=== PATIENT | female | born 1945 | race Hispanic/Latino ===

== ENCOUNTER → 2017-07-09 | Outpatient (CLI) | payer MEDICARE ==
[~2017-07-09] MED LIST: AMLO1TAB99 PO; CALC600T12 PO; DULO60CA63 PO; FE F1CAP9 PO; FOLI1TAB15 PO; HYDR-2132 PO; HYDR200T4 PO; LABE200T PO; LANS30CA55 PO; METH25VI17 IJ; MULT-1258 PO; OMEG-53 PO; SULF500T8 PO; TYLENOL PM PO; VALS1TAB77 PO; WARF10TA45 PO
== END | disposition home or self-care (01) ==
LOC: SHCH 10:27
PROVIDERS: ATTEND Internal Medicine Cardiovascular Disease
DX: I35.0 Nonrheumatic aortic (valve) stenosis (principal)
CPT/HCPCS: 93306

== ENCOUNTER 2017-09-21 11:21 | Emergency (ER) | payer MEDICARE ==
[~2017-09-21 11:21] MED LIST changes: -LABE200T PO; +LABE200T5 PO
== END 2017-09-21 12:19 | disposition home or self-care (01) ==
LOC: EDH 11:21
DX: H66.012 Acute suppurative otitis media with spontaneous rupture of ear drum, left ear (principal); I10 Essential (primary) hypertension; Z85.3 Personal history of malignant neoplasm of breast; Z98.890 Other specified postprocedural states; Z87.891 Personal history of nicotine dependence

== ENCOUNTER → 2019-04-12 | Outpatient (CLI) | payer MEDICARE ==
[~2019-04-12] VITALS: Ht 154.9 cm; Wt 110.7 kg
[~2019-04-12] MED LIST changes: -DULO60CA63 PO; +DULO60CA64 PO; +REGADENOSON 0.4 MG/5 ML PF SYG IVP SCH
== END | disposition home or self-care (01) ==
LOC: SHCH 08:46
PROVIDERS: ATTEND Internal Medicine Cardiovascular Disease
DX: I35.0 Nonrheumatic aortic (valve) stenosis (principal)
CPT/HCPCS: 78452; 93017; 96374; A9500 ×2; J2785

== ENCOUNTER 2019-05-08 10:59 | Observation (INO) | payer MEDICARE ==
[~2019-05-08] VITALS: Ht 160 cm; Wt 112.0 kg
[~2019-05-08 10:59] MED LIST changes: -REGADENOSON 0.4 MG/5 ML PF SYG IVP SCH
[2019-05-08 14:00] LABS: BASOPHILS % (AUTO) 0.8 % (0.0-5.0); EOSINOPHILS % (AUTO) 3.2 % (0.0-8.0); HEMATOCRIT 32.9 % (36-48); LYMPHOCYTES % (AUTO) 9.4 % (21.0-51.0); MEAN CORPUSCULAR HEMOGLOBIN 28.3 pg (27.0-33.0); MEAN CORPUSCULAR VOLUME 91.4 fL (79-99); MONOCYTES % (AUTO) 9.4 % (3.0-13.0); NEUTROPHILS % (AUTO) 76.9 % (40.0-77.0); PLATELET COUNT (AUTO) 317 K/uL (130-400); WHITE BLOOD COUNT (AUTO) 8.9 K/uL (4.8-10.8)
[2019-05-08 14:18] LABS: PARTIAL THROMBOPLASTIN TIME 59.4 SEC (26.3-35.5)
[2019-05-08 14:44] LABS: CREATININE 0.7 mg/dL (0.5-1.5); POTASSIUM 3.8 mmol/L (3.5-5.1)
[2019-05-08 14:51] LABS: ALBUMIN 3.5 g/dL (3.5-5.0); BILIRUBIN,TOTAL 0.6 mg/dL (0.2-1.0); INR 6.08 (0.85-1.15); PROTHROMBIN TIME 59.6 SEC (9.6-11.6); TOTAL PROTEIN, SERUM 7.9 g/dL (6.0-8.3)
[2019-05-08] MEDS ORDERED: PHYTONADIONE 10 MG/1 ML AMP ONE (15:12)
[2019-05-08] MEDS ORDERED: ONDANSETRON HCL 4 MG/2 ML VIAL ONE (15:28)
[2019-05-08] MEDS ORDERED: MORPHINE SULFATE 2 MG/ML 1ML SYG ONE (15:28)
--- NOTE | 2019-05-08 18:55 | NUR ---
ADMISSION FROM ER. PT AAO X 3 , VERY HUNGRY ,SETUP A DINNER SANDWICH. CALL LIGHT IN REACH..
[2019-05-08 19:30] VITALS: BP 138/73
[2019-05-08] MEDS ORDERED: MORPHINE SULFATE 2 MG/ML 1ML SYG IVP PRN (19:30)
[2019-05-08] MEDS ORDERED: LOSA1TAB37 PO (20:54)
[2019-05-08] MEDS ORDERED: HYDR25TA PO (20:54)
[2019-05-08] MEDS ORDERED: OXYB5TAB15 PO (20:54)
[2019-05-08] MEDS ORDERED: PREG50CA63 PO (20:54)
[2019-05-08] MEDS ORDERED: WARF10TA23 PO (20:54)
[2019-05-08] MEDS ORDERED: PANT20TA12 PO (20:54)
[2019-05-08] MEDS ORDERED: MONT10TA24 PO (20:54)
[2019-05-08] MEDS ORDERED: CHOL200012 PO (20:57)
[2019-05-08] MEDS ORDERED: LATA7.5D OP (20:57)
[2019-05-08] MEDS ORDERED: OMEG-148 PO (20:57)
[2019-05-08 23:23] VITALS: BP 131/65
[2019-05-09] MEDS ORDERED: MORPHINE SULFATE 2 MG/ML 1ML SYG IVP ONE (01:45)
[2019-05-09] MEDS ORDERED: MORPHINE SULFATE 2 MG/ML 1ML SYG IVP PRN (01:45)
[2019-05-09] MEDS ORDERED: MORPHINE SULFATE 2 MG/ML 1ML SYG ONE (02:00)
[2019-05-09 03:25] VITALS: BP 152/69
[2019-05-09 05:06] LABS: HEMATOCRIT 29.5 % (36-48); MEAN CORPUSCULAR HEMOGLOBIN 28.2 pg (27.0-33.0); MEAN CORPUSCULAR HGB CONC 30.8 g/dL (32.0-36.0); MEAN CORPUSCULAR VOLUME 91.3 fL (79-99); PLATELET COUNT (AUTO) 303 K/uL (130-400); RED BLOOD CELL COUNT(AUTO) 3.23 MIL/uL (4.00-5.50); RED CELL DISTRIBUTION WIDTH 15.2 % (11.0-15.5); WHITE BLOOD COUNT (AUTO) 7.3 K/uL (4.8-10.8)
[2019-05-09 05:31] LABS: BILIRUBIN,TOTAL 0.5 mg/dL (0.2-1.0); CREATININE 0.7 mg/dL (0.5-1.5); POTASSIUM 3.7 mmol/L (3.5-5.1); TOTAL PROTEIN, SERUM 6.9 g/dL (6.0-8.3)
[2019-05-09 05:38] LABS: INR 3.61 (0.85-1.15); PROTHROMBIN TIME 36.1 SEC (9.6-11.6)
[2019-05-09 07:37] VITALS: BP 141/64
[2019-05-09] MEDS ORDERED: IPRATROPIUM/ALBUTEROL SULFATE 3 ML SOLUTION IH ONE (08:52)
[2019-05-09] MEDS ORDERED: CHOLECALCIFEROL 50 MCG PO SCH (09:00)
[2019-05-09] MEDS ORDERED: OXYBUTYNIN CHLORIDE 5 MG TABLET PO SCH (09:00)
[2019-05-09] MEDS ORDERED: SULFASALAZINE 500 MG TAB.DR PO SCH (09:00)
[2019-05-09] MEDS ORDERED: FISH OIL 1000 MG/CAP PO SCH (09:00)
[2019-05-09] MEDS ORDERED: LOSARTAN/HYDROCHLOROTHIAZIDE 50-12.5MG TABLET PO SCH (09:00)
[2019-05-09] MEDS ORDERED: HYDROCHLOROTHIAZIDE 25 MG TABLET PO SCH (09:00)
[2019-05-09] MEDS ORDERED: MULTIVITAMIN WITH MINERALS TABLET PO SCH (09:08)
[2019-05-09] MEDS ORDERED: PANTOPRAZOLE SODIUM 20 MG PO SCH (09:15)
[2019-05-09] MEDS ORDERED: PREGABALIN 25 MG CAP PO SCH (09:16)
[2019-05-09 10:59] VITALS: BP 181/92
[2019-05-09] MEDS ORDERED: IPRATROPIUM/ALBUTEROL SULFATE 3 ML SOLUTION IH SCH (12:00)
--- NOTE | 2019-05-09 14:42 | NUR ---
VITAMIN K AND COUMADIN EDUCATION COMPLETED PT STATED SHE HAS BEEN ON COUMADIN SINCE 2008 AND IS FAMILIAR WITH NUTRIENT/ DRUG INTERACTIONS. SHE HAS A BOOK AT HOME THAT LETS HER KNOW HOW MUCH VITAMIN K IS IN FOODS. PT AND CAREGIVER ALLOWED FOR FURTHER EDUCATION. RD PROVIDED VITAMIN K AND COUMADIN EDUCATION AND PT VERBALIZED UNDERSTANDING. EDUCATION MATERIALS WERE PROVIDED. Addendum: 05/09/19 at [address] Amended: Links added.
--- NOTE | 2019-05-09 15:45 | NUR ---
cm note met with patient and states agreeable to any in [facility]. states she will be having anew insurance on 2019. referral faxed to [facility] will call back if in network
[2019-05-09 16:16] VITALS: BP 170/72
--- NOTE | 2019-05-09 16:45 | NUR ---
cm note spoke to dulce maria with [facility] states they are in network but will need h&P or progress note by md signed, dictated. states can accept pt and will accept report, but needs to have that paperwork by tomorrow in order to see pt tomorrow. call made to dr Mary álvarez and made aware. states she will dictate a note for pt today. plan for dc today. updated primary nurse colin.
--- NOTE | 2019-05-09 16:50 | NUR ---
INITIAL MET W PT AND SISTER- PT LIVES ALONE, USES [employer]ING [employer], HAS NO PROVIDER SERVICES; DC PLAN IS HOME Addendum: 05/09/19 at 1652 by ROBBIN CASAS RN CM Amended: Links added.
[2019-05-09] MEDS ORDERED: WARFARIN SODIUM 5 MG TAB PO SCH (17:00)
--- NOTE | 2019-05-09 17:39 | NUR ---
COUMADIN 5 MGPO GIVEN , INR OF 3.61
--- NOTE | 2019-05-09 18:54 | NUR ---
REPORT CALLED TO [facility] . AT NO. [phone], SPOKE WITH STAFF NURSE , TAYLA SARKAR RN. SUMMARY CARE WAS REVIEW WITH PT. AND INR . FOLLOWUP PER PT INFORMATION SHE STATED THAT [facility] TO DO [facility]R IN THEIR OFFICE BUT IS CLOSE FOR [facility] , . DR. BOWLING STATED THAT IF FOR ANY REASON. SHE WAS NOT ABLE TO HAVE IT DONE, TO GO TO HER OFFICE FOR LABS, , PT AWARE OF INFORMATION AND CARE . SL TO HER RT HAND WAS DC ,WITH NO HEMATOMA OR REDNESS , NOTED A SM DRSG . APPLICATION ON .. DENIES ANY DISCOMFORT
[2019-05-09] MEDS ORDERED: MONTELUKAST SODIUM 10 MG TAB PO SCH (21:00)
[2019-05-09] MEDS ORDERED: AMLODIPINE BESYLATE 5 MG TAB PO SCH (21:00)
[2019-05-09] MEDS ORDERED: ATORVASTATIN CALCIUM 20 MG TABLET PO SCH (21:00)
[2019-05-09] MEDS ORDERED: LATANOPROST 2.5 ML DROPS OU SCH (21:00)
[2019-05-11] MEDS ORDERED: WARFARIN SODIUM 7.5 MG TAB PO SCH (16:00)
[2019-05-13] MEDS ORDERED: METHOTREXATE SODIUM 25 MG/ML SQ SCH (09:00)
== END 2019-05-09 18:57 | disposition home or self-care (01) ==
LOC: EDH 10:59 → EDHIP 16:00 → 4BH 18:47
PROVIDERS: ADMIT Internal Medicine Nephrology; ATTEND Internal Medicine Nephrology
DX: S80.11XA Contusion of right lower leg, initial encounter (principal); S00.83XA Contusion of other part of head, initial encounter; I10 Essential (primary) hypertension; M06.9 Rheumatoid arthritis, unspecified; E78.5 Hyperlipidemia, unspecified; E66.01 Morbid (severe) obesity due to excess calories; R79.1 Abnormal coagulation profile; E78.00 Pure hypercholesterolemia, unspecified; E11.9 Type 2 diabetes mellitus without complications; Z87.891 Personal history of nicotine dependence; Z85.3 Personal history of malignant neoplasm of breast; Z96.653 Presence of artificial knee joint, bilateral; Z90.13 Acquired absence of bilateral breasts and nipples; Z95.1 Presence of aortocoronary bypass graft; Z90.710 Acquired absence of both cervix and uterus; Z95.2 Presence of prosthetic heart valve; Z79.01 Long term (current) use of anticoagulants; Z79.899 Other long term (current) drug therapy; Z68.41 Body mass index [BMI] 40.0-44.9, adult; W01.198A Fall on same level from slipping, tripping and stumbling with subsequent striking against other object, initial encounter; Y93.89 Activity, other specified; Y92.009 Unspecified place in unspecified non-institutional (private) residence as the place of occurrence of the external cause
CPT/HCPCS: 36415 ×2; 70450; 72125; 73030; 73080; 73562; 80053 ×2; 82550; 84484; 85025; 85027; 85610 ×2; 85730; 93005; 94640 ×2; 94664; 96374; 96376; 97039; 97116; 97161; 99284; G0378 ×26; G8978; G8979; G8980; G8981; G8982; G8983; J2405; J3430

== ENCOUNTER 2020-12-14 22:20 | Emergency (ER) | payer OTHER, MEDICARE ==
[~2020-12-14] VITALS: Ht 157.5 cm; Wt 105.2 kg
[~2020-12-14 22:20] MED LIST changes: -CALC600T12 PO; +CHOL200012 PO; -DULO60CA64 PO; -FE F1CAP9 PO; -FOLI1TAB15 PO; -HYDR-2132 PO; -HYDR200T4 PO; +HYDR25TA PO; -LABE200T5 PO; -LANS30CA55 PO; +LATA7.5D OP; +LOSA1TAB37 PO; +MONT10TA32 PO; +OMEG-148 PO; -OMEG-53 PO; +OXYB5TAB15 PO; +PANT20TA18 PO; +PREG50CA63 PO; -TYLENOL PM PO; -VALS1TAB77 PO; +WARF10TA23 PO
[2020-12-14 22:25] VITALS: BP 219/107
[2020-12-14 22:40] VITALS: BP 209/101
[2020-12-14 22:55] VITALS: BP 200/98
[2020-12-14 23:02] LABS: BASOPHILS % (AUTO) 0.7 % (0.0-5.0); EOSINOPHILS % (AUTO) 3.1 % (0.0-8.0); HEMATOCRIT 36.9 % (36-48); LYMPHOCYTES % (AUTO) 14.2 % (21.0-51.0); MEAN CORPUSCULAR HEMOGLOBIN 29.7 pg (27.0-33.0); MEAN CORPUSCULAR HGB CONC 32.2 g/dL (32.0-36.0); MONOCYTES % (AUTO) 9.4 % (3.0-13.0); NEUTROPHILS % (AUTO) 72.3 % (40.0-77.0); PLATELET COUNT (AUTO) 257 K/uL (130-400); RED BLOOD CELL COUNT(AUTO) 4.01 MIL/uL (4.00-5.50); RED CELL DISTRIBUTION WIDTH 14.5 % (11.0-15.5); WHITE BLOOD COUNT (AUTO) 8.8 K/uL (4.8-10.8)
[2020-12-14 23:10] VITALS: BP 183/71
[2020-12-14 23:22] LABS: CREATININE 0.8 mg/dL (0.5-1.5); POTASSIUM 3.3 mmol/L (3.5-5.1)
[2020-12-14 23:25] VITALS: BP 189/74
[2020-12-14 23:26] LABS: ALBUMIN 3.8 g/dL (3.5-5.0); BILIRUBIN,TOTAL 0.6 mg/dL (0.2-1.0); TOTAL PROTEIN, SERUM 8.4 g/dL (6.0-8.3)
[2020-12-14 23:32] LABS: INR 2.38 (0.85-1.15)
[2020-12-14 23:55] VITALS: BP 174/85
[2020-12-15 00:11] VITALS: BP 172/79
[2020-12-15] MEDS ORDERED: POTASSIUM BICARB/CIT AC 25 MEQ TABLET.EFF ONE (00:18)
[2020-12-15] MEDS ORDERED: ORPH-43 PO (01:12)
[2020-12-15] MEDS ORDERED: ONDA4TAB10 PO (01:12)
[2020-12-15] MEDS ORDERED: LIDOP TP (01:12)
[2020-12-15] MEDS ORDERED: ONDANSETRON 4MG INJ IVP ONE (01:30)
[2020-12-15] MEDS ORDERED: LIDOCAINE 5% TOPICAL PATCH TP ONE (01:30)
[2020-12-15] MEDS ORDERED: HYDROCODONE/ACETAMINOPHEN 5/325 MG TAB PO ONE (01:30)
[2020-12-15 01:43] VITALS: BP 164/92
== END 2020-12-15 02:13 | disposition home or self-care (01) ==
LOC: EDH 22:20
DX: S00.83XA Contusion of other part of head, initial encounter (principal); S46.912A Strain of unspecified muscle, fascia and tendon at shoulder and upper arm level, left arm, initial encounter; S80.02XA Contusion of left knee, initial encounter; S80.01XA Contusion of right knee, initial encounter; I10 Essential (primary) hypertension; Z95.0 Presence of cardiac pacemaker; Z79.01 Long term (current) use of anticoagulants; Z79.899 Other long term (current) drug therapy; W20.8XXA Other cause of strike by thrown, projected or falling object, initial encounter; Y93.01 Activity, walking, marching and hiking; Y92.89 Other specified places as the place of occurrence of the external cause; Y99.8 Other external cause status
CPT/HCPCS: 36415; 70450; 71045; 72125; 73020; 73560; 80053; 85025; 85610; 93005; 96374; 99284; J2405

== ENCOUNTER 2020-12-26 17:21 | Emergency (ER) | payer OTHER, MEDICARE ==
[~2020-12-26] VITALS: Ht 157.5 cm; Wt 105.2 kg
[~2020-12-26 17:21] MED LIST changes: +LIDOP TP; +ONDA4TAB10 PO; +ORPH-43 PO
[2020-12-26 17:22] VITALS: BP 153/77
[2020-12-26 17:57] LABS: HEMATOCRIT 35.9 % (36-48); MEAN CORPUSCULAR HEMOGLOBIN 29.6 pg (27.0-33.0); MEAN CORPUSCULAR VOLUME 92.3 fL (79-99); PLATELET COUNT (AUTO) 266 K/uL (130-400); RED BLOOD CELL COUNT(AUTO) 3.89 MIL/uL (4.00-5.50); RED CELL DISTRIBUTION WIDTH 15.1 % (11.0-15.5); WHITE BLOOD COUNT (AUTO) 7.1 K/uL (4.8-10.8)
[2020-12-26 18:13] LABS: INR 2.7 (0.85-1.15); PROTHROMBIN TIME 26.9 SEC (9.6-11.6)
[2020-12-26 18:15] LABS: PARTIAL THROMBOPLASTIN TIME 39.5 SEC (26.3-35.5)
[2020-12-26 18:24] LABS: CREATININE 0.8 mg/dL (0.5-1.5); POTASSIUM 3.4 mmol/L (3.5-5.1)
[2020-12-26 18:37] LABS: ALBUMIN 3.8 g/dL (3.5-5.0); BILIRUBIN,TOTAL 0.5 mg/dL (0.2-1.0); TOTAL PROTEIN, SERUM 7.5 g/dL (6.0-8.3)
[2020-12-26 19:03] LABS: BAND NEUTROPHILS % (MANUAL) 7 % (0-2); EOSINOPHILS % (MANUAL) 5 % (1-6); LYMPHOCYTES % (MANUAL) 10 % (22-44); MAN.DIFF COMMENT-IMPRESSION MANUAL DIFFERENTIAL; MONOCYTES % (MANUAL) 8 % (2-9); REACTIVE LYMPHOCYTES 2 % (0-0); SEGMENTED NEUTROPHILS % 68 % (40-70)
[2020-12-26 19:12] LABS: PLATELET MORPHOLOGY COMMENT LARGE PLTS
[2020-12-26] MEDS ORDERED: TRAM50TA4 PO (19:32)
== END 2020-12-26 20:02 | disposition home or self-care (01) ==
LOC: EDH 17:21
DX: S00.83XA Contusion of other part of head, initial encounter (principal); E78.00 Pure hypercholesterolemia, unspecified; I10 Essential (primary) hypertension; Z79.01 Long term (current) use of anticoagulants; Z79.899 Other long term (current) drug therapy; Z98.890 Other specified postprocedural states; Z95.2 Presence of prosthetic heart valve; W18.39XA Other fall on same level, initial encounter; Y93.89 Activity, other specified; Y92.89 Other specified places as the place of occurrence of the external cause; Y99.8 Other external cause status
CPT/HCPCS: 36415; 70450; 70486; 80053; 85025; 85610; 85730

== ENCOUNTER → 2021-05-28 | Outpatient (CLI) | payer OTHER, MEDICARE ==
[~2021-05-28] MED LIST changes: +MONT-39 PO; -MONT10TA32 PO
[2021-05-28 11:04] LABS: BASOPHILS % (AUTO) 0.6 % (0.0-5.0); HEMATOCRIT 38.4 % (36-48); LYMPHOCYTES % (AUTO) 14.3 % (21.0-51.0); MEAN CORPUSCULAR HEMOGLOBIN 28.5 pg (27.0-33.0); MEAN CORPUSCULAR HGB CONC 32.6 g/dL (32.0-36.0); MEAN CORPUSCULAR VOLUME 87.7 fL (79-99); MONOCYTES % (AUTO) 7.4 % (3.0-13.0); NEUTROPHILS % (AUTO) 73.1 % (40.0-77.0); PLATELET COUNT (AUTO) 256 K/uL (130-400); RED BLOOD CELL COUNT(AUTO) 4.38 MIL/uL (4.00-5.50); RED CELL DISTRIBUTION WIDTH 14.1 % (11.0-15.5); WHITE BLOOD COUNT (AUTO) 6.2 K/uL (4.8-10.8)
[2021-05-28 13:22] LABS: ERYTHROCYTE SEDIMENTATION RATE 45 MM/HR (0-30)
== END | disposition home or self-care (01) ==
LOC: LAB 10:16
PROVIDERS: ATTEND Orthopaedic Surgery
DX: M25.412 Effusion, left shoulder (principal)
CPT/HCPCS: 36415; 85025; 85651; 86140

== ENCOUNTER → 2021-06-12 | Outpatient (CLI) | payer OTHER, MEDICARE | END | disposition home or self-care (01) | LOC: RAH 15:23 | PROVIDERS: ATTEND Orthopaedic Surgery | DX: M97.32XA Periprosthetic fracture around internal prosthetic left shoulder joint, initial encounter (principal); M25.412 Effusion, left shoulder; M89.512 Osteolysis, left shoulder | CPT/HCPCS: 73200 ==

== ENCOUNTER 2021-09-12 09:52 | Inpatient (IN) | payer OTHER, MEDICARE ==
[2021-09-10 11:23] LABS: BASOPHILS % (AUTO) 0.8 % (0.0-5.0); EOSINOPHILS % (AUTO) 4.1 % (0.0-8.0); HEMATOCRIT 40.7 % (36-48); LYMPHOCYTES % (AUTO) 19.2 % (21.0-51.0); MEAN CORPUSCULAR HEMOGLOBIN 27.8 pg (27.0-33.0); MEAN CORPUSCULAR VOLUME 89.8 fL (79-99); MONOCYTES % (AUTO) 10.3 % (3.0-13.0); NEUTROPHILS % (AUTO) 64.7 % (40.0-77.0); PLATELET COUNT (AUTO) 216 K/uL (130-400); RED BLOOD CELL COUNT(AUTO) 4.53 MIL/uL (4.00-5.50); RED CELL DISTRIBUTION WIDTH 15.2 % (11.0-15.5); WHITE BLOOD COUNT (AUTO) 6.6 K/uL (4.8-10.8)
[2021-09-10 11:29] LABS: CREATININE 0.7 mg/dL (0.5-1.5); POTASSIUM 4.1 mmol/L (3.5-5.1)
[2021-09-10 11:32] LABS: INR 1.51 (0.85-1.15); PROTHROMBIN TIME 15.9 SEC (9.6-11.6)
[2021-09-10 11:38] LABS: APPEARANCE,URINE Cloudy (CLEAR); BILIRUBIN,URINE Negative (NEGATIVE); COLOR,URINE Yellow (YELLOW); GLUCOSE, URINE (UA) Negative (NEGATIVE); KETONES,URINE Negative (NEGATIVE); LEUKOCYTE ESTERASE ,URINE Small (NEGATIVE); NITRATE,URINE Positive (NEGATIVE); OCCULT BLOOD,URINE Negative (NEGATIVE); PROTEIN,URINE Negative (NEGATIVE); UROBILINOGEN,URINE 0.2 mg/dL (0.2-1.0)
[2021-09-10 12:21] LABS: BACTERIA,URINE Many /HPF (None Seen); SQUAMOUS EPITHELIAL CELL,UR 0-2 /HPF (0-2)
[2021-09-11 08:58] VITALS: BP 200/70
[~2021-09-12] VITALS: Ht 157.5 cm; Wt 113.4 kg
[2021-09-12] VITALS (26 sets, daily range): BP systolic 90–180; BP diastolic 41–92
[~2021-09-12 09:52] MED LIST changes: +ACET-2743 PO; +AMLO-258 PO; -AMLO1TAB99 PO; +ATOR20TA65 PO; +BACL20TA PO; +CEFAZOLIN SODIUM 1 GM VIAL IVP ONE; +CLON1PAT13 TD; +DICL25TA9 PO; +GABA-529 PO; -HYDR25TA PO; -LATA7.5D OP; -LIDOP TP; +LINA145C PO; -LOSA1TAB37 PO; +LOSA1TAB54 PO; -METH25VI17 IJ; +METO100T14 PO; -OMEG-148 PO; -ONDA4TAB10 PO; -ORPH-43 PO; -PREG50CA63 PO; +TRAM50TA4 PO; +VITA-388 PO; +WARF-57 PO; -WARF10TA23 PO
[2021-09-12] MEDS ORDERED: LACTATED RINGERS 1000ML 1,000 ML IV ONE (10:58)
[2021-09-12] MEDS: GENTAMICIN SULFATE 240 MG in 0.9%NACL 100ML 100 ML IV SCH (11:43)
[2021-09-12 12:03] LABS: INR 1.14 (0.85-1.15); PROTHROMBIN TIME 12.3 SEC (9.6-11.6)
[2021-09-12] MEDS ORDERED: ROPIVACAINE 0.5% 5MG/ML 30ML IJ ONE (12:59)
[2021-09-12] MEDS ORDERED: CEFAZOLIN SODIUM 1 GM VIAL ONE ×2 (13:04→13:05)
[2021-09-12] MEDS ORDERED: LIDOCAINE PF 100MG/5ML (2%) SYRINGE 5ML ONE (13:07)
[2021-09-12] MEDS ORDERED: PROPOFOL 10 MG/ML 20ML VIAL IV ONE (13:07)
[2021-09-12] MEDS ORDERED: SUCCINYLCHOLINE CHLORIDE 20 MG/ML 10 ML VIAL ONE (13:07)
[2021-09-12] MEDS ORDERED: ROCURONIUM 10MG/1ML SYR 10 MG/ML ML ONE (13:09)
[2021-09-12] MEDS ORDERED: MIDAZOLAM HCL 1 MG/ML 2ML VIAL ONE (13:10)
[2021-09-12] MEDS ORDERED: KETAMINE 50MG/ML SYRINGE 50 MG/ML DISP.SYRIN IV ONE (13:18)
[2021-09-12] MEDS ORDERED: EPHEDRINE SULFATE 50 MG/ML AMPULE ONE (13:53)
[2021-09-12] MEDS ORDERED: GLYCOPYRROLATE 1 MG/5 ML SYRINGE ONE (14:02)
[2021-09-12] MEDS ORDERED: CEFAZOLIN SODIUM 3 GM VIAL IV ONE (14:25)
[2021-09-12] MEDS ORDERED: 0.9%NACL 10ML VIAL ONE (14:47)
[2021-09-12] MEDS ORDERED: PHENYLEPHRINE HCL 10 MG/ML 1ML VIAL IV ONE (14:47)
[2021-09-12] MEDS ORDERED: VANCOMYCIN 1G VIAL ONE ×2 (15:24→15:25)
[2021-09-12] MEDS ORDERED: NEOSTIGMINE 5MG/5ML SYR IV ONE (16:50)
[2021-09-12] MEDS ORDERED: ONDANSETRON 4MG INJ ONE (16:51)
[2021-09-12] MEDS ORDERED: ALBUTEROL INHALER 90MCG/INH IH ONE (16:53)
[2021-09-12] MEDS ORDERED: 0.9% NACL 250ML IV SCH (17:30)
[2021-09-12] MEDS ORDERED: VANCOMYCIN KIT 1 GM/250 ML IV.KIT IV SCH (17:30)
[2021-09-12] MEDS ORDERED: CALCIUM CARB 500MG PO PRN (17:30)
[2021-09-12] MEDS ORDERED: KCL 20 MEQ ERTAB PO PRN (17:30)
[2021-09-12] MEDS ORDERED: DiphenhydrAMINE HCL 50 MG/ML VIAL IVP PRN (17:30)
[2021-09-12] MEDS ORDERED: TEMAZEPAM 15 MG CAPSULE PO PRN (17:30)
[2021-09-12] MEDS ORDERED: OXYCODONE HCL 5 MG TAB PO PRN ×2 (17:30)
[2021-09-12] MEDS ORDERED: POTASSIUM CHLORIDE 10% ELIXIR 20 MEQ/15 ML UDCUP PO PRN (17:30)
[2021-09-12] MEDS: ACETAMINOPHEN 500 MG TABLET PO SCH ×2 (17:30→21:15)
[2021-09-12] MEDS ORDERED: ONDANSETRON 4MG INJ IVP PRN (17:30)
[2021-09-12] MEDS ORDERED: FE FUMARATE/FA/MV, MIN COMB#15 1 TAB PO PRN (17:30)
[2021-09-12] MEDS ORDERED: TRAMADOL HCL 50 MG TABLET PO PRN ×2 (17:30→19:30)
[2021-09-12] MEDS ORDERED: LIDOCAINE HCL-MPF 1% 2ML VIAL IV PRN (17:30)
[2021-09-12] MEDS ORDERED: POTASSIUM CHLORIDE 20MEQ/100ML 100 ML IV PRN (17:30)
[2021-09-12] MEDS: 0.9%NACL 1000ML 1,000 ML IV SCH ×2 (17:30→22:58)
[2021-09-12] MEDS ORDERED: DICLOFENAC SODIUM 25 MG PO PRN (19:30)
[2021-09-12] MEDS ORDERED: ACETAMINOPHEN 500 MG TABLET PO PRN (19:30)
[2021-09-12] MEDS ORDERED: OXYBUTYNIN CHLORIDE 5 MG TABLET PO SCH (21:00)
[2021-09-12] MEDS: METOPROLOL TARTRATE 50 MG TAB PO SCH (21:00)
[2021-09-12] MEDS: NITROFURANTOIN MONOHYD/M-CRYST 100 MG CAPSULE PO SCH (21:14)
[2021-09-12] MEDS: ATORVASTATIN 20 MG TABLET PO SCH (21:14)
[2021-09-12] MEDS: BACLOFEN 10 MG TABLET PO SCH (21:15)
[2021-09-12] MEDS: GABAPENTIN 300 MG CAPSULE PO SCH (21:16)
[2021-09-12] MEDS: FAMOTIDINE 20MG TAB PO SCH (21:16)
[2021-09-12] MEDS: CELECOXIB 200 MG CAP PO SCH (21:16)
[2021-09-12] MEDS: OXYBUTYNIN CHLORIDE 5 MG TABLET PO SCH (21:16)
[2021-09-12] MEDS: KETOROLAC 15MG/ML VIAL (15MG/ML) IV PRN (21:24)
[2021-09-12] MEDS ORDERED: WARFARIN SODIUM 5 MG TAB ONE (21:44)
[2021-09-12] MEDS: WARFARIN SODIUM 5 MG TAB PO SCH (21:55)
[2021-09-12] MEDS: PHARMACY COMMUNICATION MISC SCH (22:00)
[2021-09-12] MEDS: CEFAZOLIN SODIUM 1 GM VIAL IVP SCH (22:59)
[2021-09-13 00:30] VITALS: BP 102/42
[2021-09-13] MEDS ORDERED: PHARMACY COMMUNICATION MISC SCH (00:30)
[2021-09-13 04:08] VITALS: BP 114/40
[2021-09-13 05:01] LABS: HEMATOCRIT 28.5 % (36-48); MEAN CORPUSCULAR HEMOGLOBIN 29.1 pg (27.0-33.0); MEAN CORPUSCULAR HGB CONC 31.6 g/dL (32.0-36.0); MEAN CORPUSCULAR VOLUME 92.2 fL (79-99); RED BLOOD CELL COUNT(AUTO) 3.09 MIL/uL (4.00-5.50); RED CELL DISTRIBUTION WIDTH 15.5 % (11.0-15.5); WHITE BLOOD COUNT (AUTO) 8.7 K/uL (4.8-10.8)
[2021-09-13 05:11] LABS: CREATININE 1.5 mg/dL (0.5-1.5); POTASSIUM 4.5 mmol/L (3.5-5.1)
[2021-09-13] MEDS: CEFAZOLIN SODIUM 1 GM VIAL IVP SCH (06:08)
[2021-09-13 07:27] VITALS: BP 119/47
[2021-09-13] MEDS: LOSARTAN 100 MG TABLET PO SCH (09:00)
[2021-09-13] MEDS: AMLODIPINE 5 MG TAB PO SCH (09:00)
[2021-09-13] MEDS: LINACLOTIDE 145 MCG PO SCH (09:00)
[2021-09-13] MEDS: METOPROLOL TARTRATE 50 MG TAB PO SCH ×2 (09:00→19:51)
[2021-09-13] MEDS: [UNRECOGNIZED DRUG - OTHER] PO SCH (09:00)
[2021-09-13] MEDS: HYDROCHLOROTHIAZIDE 25 MG TABLET PO SCH (09:00)
[2021-09-13] MEDS: VITAMIN D3 PO SCH (09:00)
[2021-09-13] MEDS: [UNRECOGNIZED DRUG - OTHER] PO SCH (09:00)
[2021-09-13] MEDS: BACLOFEN 10 MG TABLET PO SCH ×2 (09:00→19:51)
[2021-09-13] MEDS ORDERED: NON-FORMULARY MEDICATION 1 EACH (Losartan/Hydrochlorothiazide (Losartan-Hctz 100-25 mg Tab PO SCH (09:00)
[2021-09-13] MEDS: PANTOPRAZOLE 40 MG TAB DR PO SCH (10:14)
[2021-09-13] MEDS: OXYBUTYNIN CHLORIDE 5 MG TABLET PO SCH ×2 (10:15→19:51)
[2021-09-13] MEDS: CELECOXIB 200 MG CAP PO SCH ×2 (10:15→19:51)
[2021-09-13] MEDS: NITROFURANTOIN MONOHYD/M-CRYST 100 MG CAPSULE PO SCH ×2 (10:15→19:51)
[2021-09-13] MEDS: GABAPENTIN 300 MG CAPSULE PO SCH ×2 (10:16→19:51)
[2021-09-13] MEDS: FAMOTIDINE 20MG TAB PO SCH ×2 (10:16→19:51)
[2021-09-13] MEDS: MONTELUKAST SODIUM 10 MG TAB PO SCH (10:16)
[2021-09-13] MEDS: POLYETHYLENE GLYCOL 3350 17 GM POWD.PACK PO SCH (10:16)
[2021-09-13 11:24] VITALS: BP 103/46
[2021-09-13] MEDS: GENTAMICIN SULFATE 240 MG in 0.9%NACL 100ML 100 ML IV SCH (11:30)
[2021-09-13] MEDS: 0.9%NACL 1000ML 1,000 ML IV SCH (12:56)
[2021-09-13] MEDS: ACETAMINOPHEN 500 MG TABLET PO SCH ×2 (14:28→22:36)
[2021-09-13] MEDS ORDERED: WARFARIN SODIUM 5 MG TAB PO SCH (16:00)
[2021-09-13 16:13] VITALS: BP 122/61
[2021-09-13] MEDS: KETOROLAC 15MG/ML VIAL (15MG/ML) IV PRN (16:33)
[2021-09-13] MEDS: WARFARIN SODIUM 5 MG TAB PO SCH (19:19)
[2021-09-13] MEDS: ATORVASTATIN 20 MG TABLET PO SCH (19:51)
[2021-09-13] MEDS: SULFASALAZINE 500 MG TAB.DR PO SCH (19:51)
[2021-09-13 20:00] VITALS: BP 129/52
[2021-09-13] MEDS: PHARMACY COMMUNICATION MISC SCH ×2 (22:01→22:53)
[2021-09-14] VITALS: BP 117/67
[2021-09-14 04:00] VITALS: BP 124/65
[2021-09-14 04:32] LABS: HEMATOCRIT 23.7 % (36-48)
[2021-09-14 04:40] LABS: INR 1.29 (0.85-1.15); PROTHROMBIN TIME 13.7 SEC (9.6-11.6)
[2021-09-14] MEDS: ACETAMINOPHEN 500 MG TABLET PO SCH ×3 (06:00→21:39)
[2021-09-14 08:00] VITALS: BP 131/64
[2021-09-14] MEDS: LOSARTAN 100 MG TABLET PO SCH (09:00)
[2021-09-14] MEDS: [UNRECOGNIZED DRUG - OTHER] PO SCH (09:00)
[2021-09-14] MEDS: AMLODIPINE 5 MG TAB PO SCH (09:00)
[2021-09-14] MEDS: GABAPENTIN 300 MG CAPSULE PO SCH (09:00)
[2021-09-14] MEDS: VITAMIN D3 PO SCH (09:00)
[2021-09-14] MEDS: BACLOFEN 10 MG TABLET PO SCH ×2 (09:00→19:34)
[2021-09-14] MEDS: HYDROCHLOROTHIAZIDE 25 MG TABLET PO SCH (09:00)
[2021-09-14] MEDS: METOPROLOL TARTRATE 50 MG TAB PO SCH ×2 (09:00→19:35)
[2021-09-14] MEDS: LINACLOTIDE 145 MCG PO SCH (09:00)
[2021-09-14] MEDS: [UNRECOGNIZED DRUG - OTHER] PO SCH (09:00)
[2021-09-14] MEDS: GENTAMICIN SULFATE 240 MG in 0.9%NACL 100ML 100 ML IV SCH (09:57)
[2021-09-14] MEDS: NITROFURANTOIN MONOHYD/M-CRYST 100 MG CAPSULE PO SCH (10:01)
[2021-09-14] MEDS: POLYETHYLENE GLYCOL 3350 17 GM POWD.PACK PO SCH (10:01)
[2021-09-14] MEDS: PANTOPRAZOLE 40 MG TAB DR PO SCH (10:01)
[2021-09-14] MEDS: CELECOXIB 200 MG CAP PO SCH ×2 (10:01→19:57)
[2021-09-14] MEDS: FAMOTIDINE 20MG TAB PO SCH ×2 (10:01→19:57)
[2021-09-14] MEDS: OXYBUTYNIN CHLORIDE 5 MG TABLET PO SCH ×2 (10:01→19:57)
[2021-09-14] MEDS: MONTELUKAST SODIUM 10 MG TAB PO SCH (10:01)
[2021-09-14] MEDS: MEROPENEM 500 MG VIAL IVP SCH ×2 (11:33→19:57)
[2021-09-14] MEDS: NALOXONE HCL 0.4 MG/1 ML ML IVP SCH (11:33)
[2021-09-14 11:46] LABS: BASOPHILS % (AUTO) 0.3 % (0.0-5.0); EOSINOPHILS % (AUTO) 4.7 % (0.0-8.0); HEMATOCRIT 28.7 % (36-48); LYMPHOCYTES % (AUTO) 9.3 % (21.0-51.0); MEAN CORPUSCULAR HEMOGLOBIN 29.2 pg (27.0-33.0); MEAN CORPUSCULAR HGB CONC 32.1 g/dL (32.0-36.0); MEAN CORPUSCULAR VOLUME 91.1 fL (79-99); MONOCYTES % (AUTO) 13.1 % (3.0-13.0); PLATELET COUNT (AUTO) 192 K/uL (130-400); RED BLOOD CELL COUNT(AUTO) 3.15 MIL/uL (4.00-5.50); RED CELL DISTRIBUTION WIDTH 15.6 % (11.0-15.5); WHITE BLOOD COUNT (AUTO) 9.5 K/uL (4.8-10.8)
[2021-09-14 12:00] VITALS: BP 115/49
[2021-09-14 12:18] LABS: ALBUMIN 2.8 g/dL (3.5-5.0); BILIRUBIN,TOTAL 0.6 mg/dL (0.2-1.0); CREATININE 1.8 mg/dL (0.5-1.5); POTASSIUM 3.6 mmol/L (3.5-5.1); TOTAL PROTEIN, SERUM 6.6 g/dL (6.0-8.3)
[2021-09-14 12:37] LABS: % IRON SATURATION 21.9 % (22-44)
[2021-09-14] MEDS: SULFASALAZINE 500 MG TAB.DR PO SCH ×2 (13:45→19:57)
[2021-09-14 16:00] VITALS: BP 159/69
[2021-09-14] MEDS ORDERED: WARFARIN SODIUM 10 MG TABLET PO SCH ×2 (16:00)
[2021-09-14] MEDS ORDERED: 0.9%NACL 1000ML 1,000 ML IV SCH (17:00)
[2021-09-14] MEDS ORDERED: EPOETIN ALFA-EPBX (NON-ESRD) 10,000 UNIT/ML VIAL SQ SCH (17:00)
[2021-09-14] MEDS ORDERED: IRON SUCROSE COMPLEX 400 MG in 0.9%NACL 50ML 50 ML IV SCH (17:00)
[2021-09-14] MEDS: ATORVASTATIN 20 MG TABLET PO SCH (19:57)
[2021-09-14] MEDS: WARFARIN SODIUM 5 MG TAB PO SCH (20:06)
[2021-09-14] MEDS ORDERED: ENOXAPARIN SODIUM 40 MG/0.4 ML SYRINGE SQ SCH (21:00)
[2021-09-15] VITALS: BP 116/89
[2021-09-15] MEDS: MEROPENEM 500 MG VIAL IVP SCH ×3 (03:18→20:45)
[2021-09-15 03:52] VITALS: BP 123/64
[2021-09-15 04:25] LABS: HEMATOCRIT 25.4 % (36-48)
[2021-09-15 04:36] LABS: INR 1.5 (0.85-1.15); PROTHROMBIN TIME 15.8 SEC (9.6-11.6)
[2021-09-15 04:53] LABS: POTASSIUM 3.5 mmol/L (3.5-5.1)
[2021-09-15] MEDS: ACETAMINOPHEN 500 MG TABLET PO SCH ×3 (06:12→20:50)
[2021-09-15 07:57] VITALS: BP 132/65
[2021-09-15] MEDS: METOPROLOL TARTRATE 50 MG TAB PO SCH ×2 (09:00→20:45)
[2021-09-15] MEDS: SULFASALAZINE 500 MG TAB.DR PO SCH ×2 (09:00→20:46)
[2021-09-15] MEDS: LOSARTAN 100 MG TABLET PO SCH (09:00)
[2021-09-15] MEDS: LINACLOTIDE 145 MCG PO SCH (09:00)
[2021-09-15] MEDS: BACLOFEN 10 MG TABLET PO SCH ×2 (09:00→23:53)
[2021-09-15] MEDS: AMLODIPINE 5 MG TAB PO SCH (09:00)
[2021-09-15] MEDS: VITAMIN D3 PO SCH (09:00)
[2021-09-15] MEDS: [UNRECOGNIZED DRUG - OTHER] PO SCH (09:00)
[2021-09-15] MEDS: [UNRECOGNIZED DRUG - OTHER] PO SCH (09:00)
[2021-09-15] MEDS: HYDROCHLOROTHIAZIDE 25 MG TABLET PO SCH (09:00)
[2021-09-15] MEDS: GABAPENTIN 300 MG CAPSULE PO SCH (09:00)
[2021-09-15] MEDS: POLYETHYLENE GLYCOL 3350 17 GM POWD.PACK PO SCH (10:25)
[2021-09-15] MEDS: OXYBUTYNIN CHLORIDE 5 MG TABLET PO SCH ×2 (10:25→20:46)
[2021-09-15] MEDS: FOLIC ACID 1 MG TABLET PO SCH (10:25)
[2021-09-15] MEDS: PANTOPRAZOLE 40 MG TAB DR PO SCH (10:25)
[2021-09-15] MEDS: FAMOTIDINE 20MG TAB PO SCH ×2 (10:25→20:46)
[2021-09-15] MEDS: CELECOXIB 200 MG CAP PO SCH ×2 (10:25→20:45)
[2021-09-15 10:58] VITALS: BP 112/68
[2021-09-15] MEDS: NALOXONE HCL 0.4 MG/1 ML ML IVP SCH (11:00)
[2021-09-15] MEDS ORDERED: WARFARIN SODIUM 5 MG TAB PO SCH (16:00)
[2021-09-15 16:12] VITALS: BP 156/62
[2021-09-15] MEDS ORDERED: BISACODYL 10 MG SUPP.RECT RC PRN (17:30)
[2021-09-15 20:13] VITALS: BP 145/74
[2021-09-15] MEDS: ATORVASTATIN 20 MG TABLET PO SCH (20:45)
[2021-09-15] MEDS ORDERED: MONTELUKAST SODIUM 10 MG TAB PO SCH (21:00)
[2021-09-16] VITALS: BP 148/75
[2021-09-16] MEDS: KETOROLAC 15MG/ML VIAL (15MG/ML) IV PRN
[2021-09-16] MEDS: MEROPENEM 500 MG VIAL IVP SCH ×2 (03:01→12:38)
[2021-09-16 04:31] VITALS: BP 156/72
[2021-09-16 05:10] LABS: BASOPHILS % (AUTO) 0.4 % (0.0-5.0); EOSINOPHILS % (AUTO) 4.6 % (0.0-8.0); HEMATOCRIT 27.6 % (36-48); LYMPHOCYTES % (AUTO) 12.3 % (21.0-51.0); MEAN CORPUSCULAR HEMOGLOBIN 28.3 pg (27.0-33.0); MEAN CORPUSCULAR HGB CONC 31.2 g/dL (32.0-36.0); MEAN CORPUSCULAR VOLUME 90.8 fL (79-99); MONOCYTES % (AUTO) 12.7 % (3.0-13.0); NEUTROPHILS % (AUTO) 69.4 % (40.0-77.0); PLATELET COUNT (AUTO) 250 K/uL (130-400); RED BLOOD CELL COUNT(AUTO) 3.04 MIL/uL (4.00-5.50); RED CELL DISTRIBUTION WIDTH 16.4 % (11.0-15.5)
[2021-09-16 05:20] LABS: CREATININE 0.9 mg/dL (0.5-1.5); POTASSIUM 4.1 mmol/L (3.5-5.1)
[2021-09-16 05:24] LABS: INR 1.84 (0.85-1.15)
[2021-09-16] MEDS: ACETAMINOPHEN 500 MG TABLET PO SCH ×2 (05:24→13:31)
[2021-09-16 08:00] VITALS: BP 152/69
[2021-09-16] MEDS: GABAPENTIN 300 MG CAPSULE PO SCH (08:55)
[2021-09-16] MEDS: AMLODIPINE 5 MG TAB PO SCH (08:56)
[2021-09-16] MEDS: METOPROLOL TARTRATE 50 MG TAB PO SCH (08:56)
[2021-09-16] MEDS: FAMOTIDINE 20MG TAB PO SCH (08:56)
[2021-09-16] MEDS: FOLIC ACID 1 MG TABLET PO SCH (08:57)
[2021-09-16] MEDS: PANTOPRAZOLE 40 MG TAB DR PO SCH (08:57)
[2021-09-16] MEDS: CELECOXIB 200 MG CAP PO SCH (08:57)
[2021-09-16] MEDS: BACLOFEN 10 MG TABLET PO SCH (08:57)
[2021-09-16] MEDS: LOSARTAN 100 MG TABLET PO SCH (08:58)
[2021-09-16] MEDS: OXYBUTYNIN CHLORIDE 5 MG TABLET PO SCH (08:58)
[2021-09-16] MEDS: HYDROCHLOROTHIAZIDE 25 MG TABLET PO SCH (08:58)
[2021-09-16] MEDS: POLYETHYLENE GLYCOL 3350 17 GM POWD.PACK PO SCH (08:59)
[2021-09-16] MEDS: VITAMIN D3 PO SCH (09:00)
[2021-09-16] MEDS: LINACLOTIDE 145 MCG PO SCH (09:00)
[2021-09-16] MEDS: [UNRECOGNIZED DRUG - OTHER] PO SCH (09:00)
[2021-09-16] MEDS: [UNRECOGNIZED DRUG - OTHER] PO SCH (09:00)
[2021-09-16] MEDS: SULFASALAZINE 500 MG TAB.DR PO SCH (09:57)
[2021-09-16] MEDS: NALOXONE HCL 0.4 MG/1 ML ML IVP SCH (11:00)
[2021-09-16] MEDS ORDERED: CEFD300C3 PO (11:16)
[2021-09-16 11:56] VITALS: BP 164/78
[2021-09-16] MEDS ORDERED: TRAM50TA4 PO (13:48)
[2021-09-16] MEDS ORDERED: FE F1CAP9 PO (13:48)
[2021-09-16] MEDS ORDERED: WARFARIN SODIUM 10 MG TABLET PO SCH (16:00)
[2021-09-19] MEDS ORDERED: CLONIDINE 0.2 MG/ 24 HR PATCH TD SCH (09:00)
[2021-09-19] MEDS ORDERED: WARFARIN SODIUM 10 MG TABLET PO SCH ×2 (16:00)
== END 2021-09-16 16:55 | disposition home health service (06) | DRG 483 ==
LOC: DAH 09:52 → OBSVTOIN 17:19 → UNDOADMOB 17:19 → INTOOBSV 17:19 → DAHIP 17:19 → 4AH 18:56 → DAHIP 18:56 → UNDODISIN 09-16 16:55
PROVIDERS: ADMIT Orthopaedic Surgery; ATTEND Orthopaedic Surgery
PROC: 0RPK0J7 Removal of Synthetic Substitute from Left Shoulder Joint, Glenoid Surface, Open Approach (ICD-10-PCS; principal; 2021-09-12 14:25)
PROC: 0RRK0J7 Replacement of Left Shoulder Joint with Synthetic Substitute, Glenoid Surface, Open Approach (ICD-10-PCS; 2021-09-12 14:25)
PROC: 30233N1 Transfusion of Nonautologous Red Blood Cells into Peripheral Vein, Percutaneous Approach (ICD-10-PCS; 2021-09-14)
DX: T84.038A Mechanical loosening of other internal prosthetic joint, initial encounter (principal); D62 Acute posthemorrhagic anemia; N39.0 Urinary tract infection, site not specified; N17.9 Acute kidney failure, unspecified; Z68.42 Body mass index [BMI] 45.0-49.9, adult; M19.012 Primary osteoarthritis, left shoulder; E78.5 Hyperlipidemia, unspecified; I10 Essential (primary) hypertension; Z95.2 Presence of prosthetic heart valve; M06.9 Rheumatoid arthritis, unspecified; Z96.653 Presence of artificial knee joint, bilateral; Z83.3 Family history of diabetes mellitus; Z82.49 Family history of ischemic heart disease and other diseases of the circulatory system; Z82.0 Family history of epilepsy and other diseases of the nervous system; B96.20 Unspecified Escherichia coli [E. coli] as the cause of diseases classified elsewhere; E66.9 Obesity, unspecified; Y83.8 Other surgical procedures as the cause of abnormal reaction of the patient, or of later complication, without mention of misadventure at the time of the procedure; Y92.89 Other specified places as the place of occurrence of the external cause; M97.32XA Periprosthetic fracture around internal prosthetic left shoulder joint, initial encounter; R41.82 Altered mental status, unspecified
CPT/HCPCS: 36415; 36430; 73030; 80048; 80053; 81001; 82607; 82728; 82746; 82948; 83540; 83550; 83605; 84145; 85014; 85018; 85025; 85027; 85045; 85610; 86850; 86900; 86901; 86923; 87040; 87070; 87076; 87077; 87088; 87186; 87205; 87635; 87641; 97039; A4565; C9803; G0378; J0330; J0690; J1580; J1650; J1756; J1885; J2001; J2185; J2250; J2370; J2405; J2704; J2710; J2795; J3370; J3490; J7050; J7120; P9016

== ENCOUNTER 2021-11-27 05:27 | Emergency (ER) | payer OTHER, MEDICARE ==
[~2021-11-27] VITALS: Ht 165.1 cm; Wt 113.4 kg
[~2021-11-27 05:27] MED LIST changes: -CEFAZOLIN SODIUM 1 GM VIAL IVP ONE; +CEFD300C3 PO; +FE F1CAP9 PO
[2021-11-27] MEDS ORDERED: WARFARIN (05:38)
[2021-11-27 05:55] LABS: BASOPHILS % (AUTO) 0.5 % (0.0-5.0); EOSINOPHILS % (AUTO) 4.2 % (0.0-8.0); HEMATOCRIT 40.6 % (36-48); LYMPHOCYTES % (AUTO) 19.4 % (21.0-51.0); MEAN CORPUSCULAR HEMOGLOBIN 28.8 pg (27.0-33.0); MEAN CORPUSCULAR HGB CONC 32.3 g/dL (32.0-36.0); MEAN CORPUSCULAR VOLUME 89.2 fL (79-99); MONOCYTES % (AUTO) 9.1 % (3.0-13.0); NEUTROPHILS % (AUTO) 66.5 % (40.0-77.0); PLATELET COUNT (AUTO) 236 K/uL (130-400); RED BLOOD CELL COUNT(AUTO) 4.55 MIL/uL (4.00-5.50); RED CELL DISTRIBUTION WIDTH 14.6 % (11.0-15.5); WHITE BLOOD COUNT (AUTO) 7.8 K/uL (4.8-10.8)
[2021-11-27 06:09] LABS: INR 2.4 (0.85-1.15); PROTHROMBIN TIME 24.9 SEC (9.6-11.6)
[2021-11-27 06:11] LABS: ALBUMIN 3.8 g/dL (3.5-5.0); CREATININE 0.9 mg/dL (0.5-1.5); POTASSIUM 3.6 mmol/L (3.5-5.1); TOTAL PROTEIN, SERUM 8.4 g/dL (6.0-8.3)
[2021-11-27 07:27] VITALS: BP 177/60
[2021-11-27] MEDS ORDERED: ACETAMINOPHEN 325 MG TAB PO SCH (08:00)
== END 2021-11-27 08:21 | disposition home or self-care (01) ==
LOC: EDH 05:27
DX: S80.01XA Contusion of right knee, initial encounter (principal); S05.12XA Contusion of eyeball and orbital tissues, left eye, initial encounter; S09.90XA Unspecified injury of head, initial encounter; E78.00 Pure hypercholesterolemia, unspecified; I10 Essential (primary) hypertension; Z79.899 Other long term (current) drug therapy; Z79.01 Long term (current) use of anticoagulants; Z98.890 Other specified postprocedural states; W18.39XA Other fall on same level, initial encounter; Y93.89 Activity, other specified; Y92.89 Other specified places as the place of occurrence of the external cause; Y99.8 Other external cause status
CPT/HCPCS: 36415; 70450; 70486; 73562; 80053; 85025; 85610